=== PATIENT | male | born 1980 | race Caucasian/White ===

== ENCOUNTER 2018-05-18 17:22 | Emergency (ER) | payer MEDICAID ==
--- NOTE | 2018-05-18 17:27 | ER Report ---
History and Physical Time Seen By MD: 17:27 HPI/ROS CHIEF COMPLAINT: Chest pain HISTORY OF PRESENT ILLNESS: 38-year-old male patient presents to emergency room with complaint of chest pain. Patient states that this started approximate 45 minutes prior to arrival. Patient states that he has had some shortness of breath, some swelling. Patient states that he had does have a history of an elevated troponin in the past. At that time he was catheterized and they found no blockages. Patient states that pain is on the left side radiates up to the arm. He states he is not taking any medication for this. He denies any nausea, vomiting or diarrhea. Patient states he did take 60 mg of Viagra last night, he states that he is taking up to 80 mg in the past. Patient states he is not found anything significant chest pain worse. He states that his been very constant. REVIEW OF SYSTEMS: Respiratory: No cough, no dyspnea. Cardiovascular: As noted above Gastrointestinal: No vomiting, no abdominal pain. Musculoskeletal: No back pain. Allergies: Coded Allergies: Penicillins (Verified Allergy, Unknown, 05/18/18) Home Meds Active Scripts Metoprolol Tartrate (METOPROLOL TARTRATE) 25 Mg Tablet, 1 TAB PO BID, #60 TAB Prov:MAEGAN VALDOVINOS CREATIVE RECRUITER 05/18/18 Reported Medications Sildenafil Citrate (VIAGRA) 25 Mg Tablet, 60 MG PO PRN 05/18/18 Lisdexamfetamine Dimesylate (VYVANSE) 70 Mg Capsule, 70 MG PO QDAY, CAPSULE 05/18/18 Testosterone (Testosterone) 20.25/1.25 Gel..hand endband cutter 05/18/18 Aspirin (ASPIR 81) 81 Mg Tablet.dr, 81 MG PO QDAY, TAB 05/18/18 Lisinopril (LISINOPRIL) 20 Mg Tablet, 20 MG PO QDAY, TAB 05/18/18 Past Medical/Surgical History Patient has a past medical history of hypertension, and no hernia, kidney stone. Patient has surgical history back surgery, hernia repair 2, left shoulder surgery 2, left ankle, cardiac catheterization with no blockage. Reviewed Nurses Notes: Yes Constitutional Vital Sign - Last 24 Hours 05/18/18 05/18/18 05/18/18 05/18/18 17:25 17:33 17:37 17:48 Temp 98.0 Pulse 118 93 Resp 18 B/P (MAP) 129/82 (98) 146/89 (108) Pulse Ox 93 96 O2 Delivery Room Air 05/18/18 05/18/18 05/18/18 05/18/18 17:52 18:00 18:07 18:15 Pulse 121 123 B/P (MAP) 134/75 (94) 78/65 (69) Pulse Ox 93 91 05/18/18 05/18/18 05/18/18 05/18/18 18:22 18:37 18:44 18:58 Pulse 81 82 B/P (MAP) 148/83 (104) 142/110 (121) Pulse Ox 96 95 05/18/18 05/18/18 05/18/18 05/18/18 19:00 19:07 19:15 19:20 Pulse 78 77 Resp 17 13 B/P (MAP) 135/76 (95) 130/77 (94) 144/89 (107) Pulse Ox 95 95 05/18/18 05/18/18 05/18/18 05/18/18 19:30 19:35 19:40 19:55 Pulse 102 92 57 Resp 34 17 17 B/P (MAP) ???/??? (1665) Pulse Ox 96 95 95 05/18/18 05/18/18 05/18/18 05/18/18 20:10 20:15 20:30 20:45 Pulse 102 99 79 95 Resp 25 24 21 13 Pulse Ox 96 97 96 94 05/18/18 20:48 B/P (MAP) 143/109 (120) Physical Exam General Appearance: The patient is alert, has no immediate need for airway protection and no current signs of toxicity. Respiratory: Chest is non tender, lungs are clear to auscultation. Cardiac: regular rate and rhythm Gastrointestinal: Abdomen is soft and non tender, no masses, bowel sounds normal. Musculoskeletal: Neck: Neck is supple and non tender. Extremities have full range of motion and are non tender. Skin: No rashes or lesions. DIFFERENTIAL DIAGNOSIS: After history and physical exam differential diagnosis was considered for chest pain including but not limited to myocardial ischemia, pericarditis pulmonary embolus, chest wall pain, pleural inflammation and pulmonary infectious causes. Medical Decision Making Data Points Result Diagram: 05/18/18 1730 05/18/18 173 Laboratory Hematology Test 05/18/18 17:30 05/18/18 19:48 Red Blood Count 5.75 M/uL (4.00-5.60) Mean Corpuscular Volume 91.9 fL (80.0-96.0) Mean Corpuscular Hemoglobin 30.8 pg (26.0-33.0) Mean Corpuscular Hemoglobin Concent 33.5 g/dL (32.0-36.0) Red Cell Distribution Width 13.0 % (11.5-14.5) Mean Platelet Volume 8.8 fL (7.2-11.1) Neutrophils (%) (Auto) 75.6 % (39.4-72.5) Lymphocytes (%) (Auto) 15.8 % (17.6-49.6) Monocytes (%) (Auto) 7.5 % (4.1-12.4) Eosinophils (%) (Auto) 0.8 % (0.4-6.7) Basophils (%) (Auto) 0.3 % (0.3-1.4) Nucleated RBC Relative Count (auto) 0.0 /100WBC Neutrophils # (Auto) 7.3 K/uL (2.0-7.4) Lymphocytes # (Auto) 1.5 K/uL (1.3-3.6) Monocytes # (Auto) 0.7 K/uL (0.3-1.0) Eosinophils # (Auto) 0.1 K/uL (0.0-0.5) Basophils # (Auto) 0.0 K/uL (0.0-0.1) Nucleated RBC Absolute Count (auto) 0.00 K/uL D-Dimer Quantitative (PE/DVT) < 0.27 ug/ml (0-0.50) Sodium Level 137 mmol/L (137-145) Potassium Level 3.4 mmol/L (3.5-5.0) Chloride Level 100 mmol/L (98-107) Carbon Dioxide Level 27 mmol/L (22-30) Blood Urea Nitrogen 11 mg/dl (9-21) Creatinine 0.90 mg/dl (0.66-1.25) Glomerular Filtration Rate Calc > 60.0 Random Glucose 103 mg/dl (75-110) Calcium Level 9.1 mg/dl (8.4-10.2) Total Bilirubin 0.2 mg/dl (0.2-1.3) Aspartate Amino Transf (AST/SGOT) 45 U/L (0-35) Alanine Aminotransferase (ALT/SGPT) 63 U/L (0-56) Alkaline Phosphatase 41 U/L (0-126) Total Protein 7.7 g/dl (6.3-8.2) Albumin 4.3 g/dl (3.5-5.0) Troponin I < 0.012 ng/ml Chemistry Test 05/18/18 17:30 05/18/18 19:48 White Blood Count 9.6 k/uL (4.5-11.0) Red Blood Count 5.75 M/uL (4.00-5.60) Hemoglobin 17.7 g/dL (14.0-18.0) Hematocrit 52.8 % (42.0-52.0) Mean Corpuscular Volume 91.9 fL (80.0-96.0) Mean Corpuscular Hemoglobin 30.8 pg (26.0-33.0) Mean Corpuscular Hemoglobin Concent 33.5 g/dL (32.0-36.0) Red Cell Distribution Width 13.0 % (11.5-14.5) Platelet Count 264 K/uL (150-450) Mean Platelet Volume 8.8 fL (7.2-11.1) Neutrophils (%) (Auto) 75.6 % (39.4-72.5) Lymphocytes (%) (Auto) 15.8 % (17.6-49.6) Monocytes (%) (Auto) 7.5 % (4.1-12.4) Eosinophils (%) (Auto) 0.8 % (0.4-6.7) Basophils (%) (Auto) 0.3 % (0.3-1.4) Nucleated RBC Relative Count (auto) 0.0 /100WBC Neutrophils # (Auto) 7.3 K/uL (2.0-7.4) Lymphocytes # (Auto) 1.5 K/uL (1.3-3.6) Monocytes # (Auto) 0.7 K/uL (0.3-1.0) Eosinophils # (Auto) 0.1 K/uL (0.0-0.5) Basophils # (Auto) 0.0 K/uL (0.0-0.1) Nucleated RBC Absolute Count (auto) 0.00 K/uL D-Dimer Quantitative (PE/DVT) < 0.27 ug/ml (0-0.50) Glomerular Filtration Rate Calc > 60.0 Calcium Level 9.1 mg/dl (8.4-10.2) Total Bilirubin 0.2 mg/dl (0.2-1.3) Aspartate Amino Transf (AST/SGOT) 45 U/L (0-35) Alanine Aminotransferase (ALT/SGPT) 63 U/L (0-56) Alkaline Phosphatase 41 U/L (0-126) Total Protein 7.7 g/dl (6.3-8.2) Albumin 4.3 g/dl (3.5-5.0) Troponin I < 0.012 ng/ml Coagulation Test 05/18/18 17:30 D-Dimer Quantitative (PE/DVT) < 0.27 ug/ml EKG/Imaging EKG Interpretation 12 lead EKG: Rhythm: Sinus tachycardia with trigeminal PVCs. [place]: normal QRS: normal ST segments: normal Imaging 2 VIEWS CHEST INDICATION: Chest pain. COMPARISON: None available FINDINGS: Cardiomediastinal silhouette and pulmonary vessels within normal limits. There is no focal infiltrate or lobar consolidation. There is no pneumothorax or pleural effusion. Question of a tiny nodule in the lateral right upper lobe. No other nodule. Upper abdomen is unremarkable. No acute bony abnormality. IMPRESSION: 1. No acute cardiopulmonary process. 2. Question of a tiny nodule seen in the lateral right upper lobe. This could represent overlapping vessels. As there are no prior exams, suggest a follow-up chest x-ray, PA and lateral, in 3-6 months for reevaluation. Report Dictated By: Kristopher Ware at 05/18/2018 6:47 PM Report E-Signed By: Kristopher Ware at 05/18/2018 6:49 PM ED Course/Re-evaluation ED Course Patient was admitted to an exam room, history and physical were obtained. Differential diagnoses were considered. On examination lungs are clear, heart is regular, abdomen is soft and nontender. A CBC, CMP, troponin, EKG, d-dimer were done. Patient states that he had significant pain. He states he did have some shortness of breath with this. The CBC and CMP were unremarkable. The initial troponin was negative. EKG was alarming that he did have frequent PVCs and was in trigeminy at that time. Patient did receive a dose of morphine for chest pain. He states that did improve his comfort. I did do a repeat troponin at the 4 hour miryam. At that time the lab continues to be negative. I discussed the case with Dr. Damon, lead man over all dies in pattern shop at [facility], who felt the patient should follow-up as an outpatient. He did recommend starting the patient on metoprolol 25 mg twice a day. I discussed this with the patient. Patient verbalized understanding and agreement. He did get his first dose here. I did give him the information for Dr. Damon to follow-up. Patient will be discharged at this time. Decision to Disposition Date: May 18, 2018 Decision to Disposition Time: 20:56 Depart Departure Latest Vital Signs Vital Signs Date Time Temp Pulse Resp B/P (MAP) Pulse Ox O2 Delivery O2 Flow Rate FiO2 05/18/18 20:48 143/109 (120) 05/18/18 20:45 95 13 94 05/18/18 17:25 98.0 Room Air Impression: Primary Impression: Chest pain Additional Impression: Ventricular arrhythmia Condition: Improved Disposition: HOME OR SELF-CARE New Scripts Metoprolol Tartrate (METOPROLOL TARTRATE) 25 Mg Tablet 1 TAB PO BID, #60 TAB Prov: MAEGAN VALDOVINOS 05/18/18 Patient Instructions: Chest Pain (ED) Additional Instructions: Increase fluid intake. Get plenty of rest. Limit activity by pain. Follow up with Dr. Damon [facility] [address] [place], [place] Call to make an appointment. Return to the ER if condition worsens. Problem Qualifiers Primary Impression: Chest pain Chest pain type: other chest pain Qualified Codes: R07.89 - Other chest pain MAEGAN VALDOVINOS May 18, 2018 17:27
[2018-05-18] MEDS ORDERED: NS(*) 0.9% 1000 ML BAG 1,000 ML IV ONE (17:31)
[2018-05-18] MEDS ORDERED: ASPIRIN 81 MG CHEW PO ONE (17:35)
[2018-05-18] MEDS ORDERED: SILD25TA6 PO (17:40)
[2018-05-18] MEDS ORDERED: ASPI-1471 PO (17:40)
[2018-05-18] MEDS ORDERED: TEST75GE10 (17:40)
[2018-05-18] MEDS ORDERED: LISI20TA29 PO (17:40)
[2018-05-18] MEDS ORDERED: LIS70PT PO (17:40)
[2018-05-18 17:42] LABS: PLATELET COUNT, AUTOMATED 264 K/uL (150-450)
--- NOTE | 2018-05-18 18:04 | EKG ---
FACILITY: [facility] [place] PATIENT NAME: DANNY SCHILLING : [id number] MR: [id number] V: [id number] EXAM DATE: ORDERING PHYSICIAN: MAEGAN VALDOVINOS TECHNOLOGIST: JAYY Patel Reason : Blood Pressure : / mmHG Vent. Rate : 120 BPM Atrial Rate : 120 BPM P-R Int : 144 ms QRS Dur : 102 ms QT Int : 334 ms P-R-T Axes : 064 -28 051 degrees QTc Int : 472 ms Sinus tachycardia with bigeminal PVC's Minimal voltage criteria for LVH, may be normal variant Borderline ECG No previous ECGs available Confirmed by Brock Wayne ([id number]) on 05/18/2018 9:05:43 PM Referred By: Confirmed By:Brock Martinez
--- NOTE | 2018-05-18 18:54 | RADIOLOGY IMAGING REPORT ---
FACILITY: [facility] PATIENT NAME: Peter Montemayor : 1980 MR: [id number] V: [id number] EXAM DATE: ORDERING PHYSICIAN: MAEGAN VALDOVINOS TECHNOLOGIST: Location: [facility] [place] Patient: Peter Montemayor : 1980 Visit/Account:[id number] Date of Sevice: 05/18/2018 2 VIEWS CHEST INDICATION: Chest pain. COMPARISON: None available FINDINGS: Cardiomediastinal silhouette and pulmonary vessels within normal limits. There is no focal infiltrate or lobar consolidation. There is no pneumothorax or pleural effusion. Question of a tiny nodule in the lateral right upper lobe. No other nodule. Upper abdomen is unremarkable. No acute bony abnormality. IMPRESSION: 1. No acute cardiopulmonary process. 2. Question of a tiny nodule seen in the lateral right upper lobe. This could represent overlapping v essels. As there are no prior exams, suggest a follow-up chest x-ray, PA and lateral, in 3-6 months f or reevaluation. Report Dictated By: Kristopher Ware at 05/18/2018 6:47 PM Report E-Signed By: Kristopher Ware at 05/18/2018 6:49 PM WSN:[id number]
[2018-05-18] MEDS ORDERED: MORPHINE 4 MG/ML SDV ONE (19:05)
[2018-05-18] MEDS ORDERED: METOPROLOL TART 50 MG TAB PO ONE (20:40)
[2018-05-18] MEDS ORDERED: MORPHINE 4 MG/ML SDV IVP ONE ×2 (20:40)
[2018-05-18 20:48] VITALS: BP 143/109
[2018-05-18] MEDS ORDERED: METO25TA93 PO (20:57)
== END 2018-05-18 21:13 | disposition home or self-care (01) ==
LOC: ER 17:58
DX: R07.89 Other chest pain (principal); I49.3 Ventricular premature depolarization
CPT/HCPCS: 71046; 84484; 85025; 85379; 93005; 96361; 96374; 99284; J2270; J7030; 82040; 82247; 82310; 82374; 82435; 82565; 82947; 84075; 84132; 84155; 84295; 84450; 84460; 84520